=== PATIENT | male | born 1960 | race Caucasian/White ===

== ENCOUNTER → 2018-05-01 09:20 | Day surgery (SDC) | payer BC ==
[~2018-05-01 09:20] MED LIST: Buffered Lidocaine 1% SYRIN* 1 ML/SYRINGE INTRADERM ONE; Bupivacaine 0.25% SDV PF* 10 ML VIAL INJ ONE; Dexamethasone IV* 4 MG/ML 1 ML (4 MG) IV SLOW PU ONE; Dexamethasone IV* 4 MG/ML 1 ML (4 MG) ONE; Lactated Ringers 1000 ML Bag* 1,000 ML IV SCH; Lidocain 1% EPI 1:100,000 * 30 ML MDV ONE; Midazolam* 1 MG/ML 5 ML VIAL (5 MG) ONE; Naloxone* 0.4 MG/ML 1 ML VIAL IV PRN; Ondansetron INJ* 2 MG/ML VIAL ONE; Propofol* 10 MG/ML 20 ML BTL ONE; ceFAZolin 2 GM in NS PREMIX(*) 2 GM/100 ML BAG IVPB ONE; fentaNYL* 50 MCG/ML 2 ML VIAL (100 MCG VIAL) ONE
[2018-05-01 14:27] VITALS: BP 123/76
== END | disposition home or self-care (01) ==
LOC: OR 09:20
PROVIDERS: ATTEND Plastic Surgery
DX: C44.319 Basal cell carcinoma of skin of other parts of face (principal); I10 Essential (primary) hypertension; I25.2 Old myocardial infarction; Z87.891 Personal history of nicotine dependence; D69.6 Thrombocytopenia, unspecified; K21.9 Gastro-esophageal reflux disease without esophagitis
CPT/HCPCS: 88305; 88331; 88332; J0690; J1100; J2250; J2405; J2704; J3010; J3490

== ENCOUNTER 2019-02-27 11:03 | Emergency (ER) | payer BC ==
[2019-02-27] MEDS ORDERED: Aspirin 81 mg CHEW TAB* 81 MG TAB.CHEW PO ONE (11:47)
--- NOTE | 2019-02-27 11:56 | UC ---
UC General HPI - HPI Summary HPI Summary: Patients states two days ago he woke up with numbness in his feet, lower legs and hands. Also c/o worsening heartburn, indigestion in his throat. Constant numnbness. Walking and moving makes it worse. Feels weak. No falls. His co- workers said he should get checked out. Ran out of his metoprolol a few days ago. No SOB. No H/A. No CP. No N/V/D. States its hard for him to urinate sometimes. No loss of bowel contrl. Takes ASA 81 mg. MEds; Reviewed - History of Current Complaint Chief Complaint: UCLowerExtremity Stated Complaint: FINGER NUMBNESS Time Seen by Provider: 02/27/19 11:35 Pain Intensity: 6 - Allergy/Home Medications Allergies/Adverse Reactions: Allergies Allergy/AdvReac Type Severity Reaction Status Date / Time No Known Allergies Allergy Verified 02/27/19 11:32 Home Medications: Home Medications Ibuprofen 400 mg PO ONCE PRN 02/27/19 [History Confirmed 02/27/19] Levothyroxine Sodium 1 tab PO DAILY 02/27/19 [History Confirmed 02/27/19] PMH/Surg Hx/FS Hx/Imm Hx Previously Healthy: Yes Cardiovascular History: Hypertension - Surgical History Surgical History: Yes Surgery Procedure, Year, and Place: Rt inguinal hernia repair , [facility]. cardiac stent, 1999, [facility] - Family History Known Family History: Positive: None - Social History Alcohol Use: None Substance Use Type: None Smoking Status (MU): Former Smoker Amount Used/How Often: 1/2 pack a day for 4-5 yrs When Did the Patient Quit Smoking/Using Tobacco: 1996 Review of Systems All Other Systems Reviewed And Are Negative: Yes Neurological: Positive: Numbness Physical Exam Triage Information Reviewed: Yes Appearance: Well-Appearing Vital Signs: Initial Vital Signs Temp 98.7 F 02/27/19 11:28 Pulse 92 02/27/19 11:28 Resp 18 02/27/19 11:28 BP 175/114 02/27/19 11:28 Pulse Ox 96 02/27/19 11:28 Vital Signs Reviewed: Yes ENT: Positive: Normal ENT inspection Neck: Positive: Supple, Nontender Respiratory: Positive: Lungs clear, Normal breath sounds Cardiovascular: Positive: RRR, Other: - grade 2 systolic murmur Abdomen Description: Positive: Nontender Neurological: Positive: Alert, Muscle Tone Normal, Other: - no neuro deficits. Negative protonator drift. No sensation deficit Good pulses and cap refill b/ l in lower ext Skin Exam: Normal Diagnostics - EKG Cardiac Rate: NL Course/Dx - Course Course Of Treatment: Patient seen for two days of numbness of hands, feet and legs Elevated blood pressure off his antihypertensive History of thrombocytosis as well. Ddx: HTN urgency, CVA Recommend that he take EMS to ER - patient declined EMS despite my concern for safety and risk of increased for himself by driving himself. He wants to drive directly to [facility] ER Patient given 263 ASA mg in Urgent Care Sign out given to Delia at [facility] - Diagnoses Provider Diagnosis: Numbness and tingling in both hands, Hypertension Discharge ED - Sign-Out/Discharge Documenting (check all that apply): Patient Departure All imaging exams completed and their final reports reviewed: No Studies - Discharge Plan Condition: Fair Disposition: HOME-RECOMMEND TO ED Referrals: Get Goldberg MD [Primary Care Provider] - Additional Instructions: REcommend going directly to the Emergency room to be evaluated for your elevated blood pressure and symptoms of numbness You could be having symptoms of a stroke or hypertensive urgency that needs to be evaluated and worked up further Since you have declined EMS services, drive directly to [facility]'s ER. If you have any vision changes, chest pain or weakness, insole tack puller hand and call 911 - Billing Disposition and Condition Condition: FAIR Disposition: Home-Recommend to ED
[2019-02-27 12:04] VITALS: BP 172/117
== END 2019-02-27 12:04 | disposition home health service (06) ==
LOC: UCEAST 11:03
DX: R20.0 Anesthesia of skin (principal); R20.2 Paresthesia of skin; I10 Essential (primary) hypertension; Z87.891 Personal history of nicotine dependence
CPT/HCPCS: 93005; 99212; A9270-GY; G0463